=== PATIENT | male | born 1985 | race Two or more races ===

== ENCOUNTER 2023-11-08 12:38 | Emergency (ER) | payer MEDICAID, OTHER ==
[~2023-11-08] VITALS: Ht 185.4 cm; Wt 81.6 kg
[2023-11-08] MEDS: TDAP [DIPH/PERTUSSIS/TET] 0.5 ML VIAL IM ONE (13:00)
[2023-11-08] MEDS: CEPHALEXIN MONOHYDRATE 500 MG CAPSULE PO ONE (13:00)
[2023-11-08] MEDS ORDERED: LIDOCAINE HCL/MPF 1% 30 ML VIAL IJ ONE (13:06)
[2023-11-08] MEDS ORDERED: CEPHALEXIN MONOHYDRATE 500 MG CAPSULE PO ONE (13:38)
[2023-11-08] MEDS ORDERED: TDAP [DIPH/PERTUSSIS/TET] 0.5 ML VIAL IM ONE (13:38)
[2023-11-08] MEDS ORDERED: CEPH500C2 PO (14:03)
[2023-11-08 14:31] VITALS: BP 121/81; TEMP 98.1; O2SAT 99
== END 2023-11-08 14:31 | disposition home or self-care (01) ==
LOC: ER 12:43
DX: S61.411A Laceration without foreign body of right hand, initial encounter (principal); W26.8XXA Contact with other sharp object(s), not elsewhere classified, initial encounter; Y93.89 Activity, other specified; Y92.89 Other specified places as the place of occurrence of the external cause; Y99.8 Other external cause status
CPT/HCPCS: 12002; 90471; 90715; 99283; J3490